=== PATIENT | female | born 1965 | race African-American/Black ===

== ENCOUNTER 2019-03-20 09:00 | Inpatient (IN) | payer OTHER ==
[2019-04-06 15:21] VITALS: BMI 35.6
--- NOTE | 2019-04-10 07:34 | HP ---
History & Physical Update - Physical Physical: No Change - Assessment Assessment: No Change - Plan Plan: No Change (H&P reviwed , no changes , for supracervical hysterectomy, bilateral salpingectomy, possible bilateral oophorectomy)
[2019-04-10] MEDS ORDERED: MIDAZOLAM HCL 2 MG/2 ML SINGLE DOSE VIAL ONE ×2 (08:39)
[2019-04-10] MEDS ORDERED: BUPIVACAINE LIPOSOME/PF (EXPAREL) 266 MG/20 ML VIAL ONE (08:43)
[2019-04-10] MEDS ORDERED: BUPIVACAINE HCL/PF 0.5% (5 MG/ML) 30 ML VIAL IJ ONE (08:43)
[2019-04-10] MEDS ORDERED: PROPOFOL 20 ML ONE (09:10)
[2019-04-10] MEDS ORDERED: SUCCINYLCHOLINE CHLORIDE 200 MG/10 ML SYRINGE ONE (09:11)
[2019-04-10] MEDS ORDERED: ceFAZolin SODIUM 1 GM VIAL ONE (09:26)
[2019-04-10] MEDS ORDERED: ceFAZolin SODIUM 1 GM VIAL IVPB ONE (09:30)
[2019-04-10] MEDS ORDERED: DEXAMETHASONE SOD PHOSPHATE 4 MG/1 ML VIAL ONE (09:33)
[2019-04-10] MEDS ORDERED: HYDROmorphone HCl 2 MG/ML VIAL ONE (09:54)
[2019-04-10] MEDS ORDERED: BENZOIN TINCTURE SWABSTICK TP ONE (11:14)
[2019-04-10] MEDS ORDERED: IBUPROFEN 800 MG/8 ML IJ IVPB PRN (11:35)
[2019-04-10] MEDS ORDERED: oxyCODONE HCL 5 MG TABLET PO PRN ×2 (11:35→11:37)
[2019-04-10] MEDS ORDERED: ONDANSETRON 4 MG/2 ML VIAL IVPUSH PRN (11:35)
[2019-04-10] MEDS ORDERED: ACETAMINOPHEN 325 MG TABLET (FP) PO PRN (11:38)
[2019-04-10] MEDS ORDERED: DOCUSATE SODIUM 100 MG CAPSULE (FP) PO PRN (11:38)
--- NOTE | 2019-04-10 11:44 | OP ---
Operative Note - Note: Operative Date: 04/10/19 Pre-Operative Diagnosis: pelvic pain, menometrorrhagia , anemia , fibroid uterus Operation: supracervical abdominal hysterectomy, bilateral salpingectomy Findings: large fibroid uterus , adenomyosis, . pelvic adhesion both tube and ovaries normal Post-Operative Diagnosis: Same as Pre-op Surgeon: Miguel Hanna Newspaper Distributor Supervisor: Vicki Donohue Anesthesiologist/PAPER INSERTER: Chetna Asif Anesthesia: General Specimens Removed: uterus, both tubes Estimated Blood Loss (mls): 200 Drains & Tubes with Location: davis Drains, Volume Out (mls): 100 Blood Volume Replaced (mls): 0 Fluid Volume Replaced (mls): 1,300 Operative Report Dictated: Yes
[2019-04-10] MEDS ORDERED: IBUPROFEN 800 MG/8 ML IJ IVPB ONE ×2 (11:56→12:00)
[2019-04-10] MEDS ORDERED: LACTATED RINGERS SOLUTION 1,000 ML IV SCH (12:00)
--- NOTE | 2019-04-10 14:13 | OP ---
DATE OF OPERATION: 04/10/2019 PREOPERATIVE DIAGNOSIS: Menometrorrhagia, pelvic pain, large fibroid uterus. POSTOPERATIVE DIAGNOSIS: Menometrorrhagia, pelvic pain, large fibroid uterus, pelvic adhesion, and adenomyosis. SURGEON: Miguel Hanna MD CALL CENTER ASSOCIATE: Vicki Donohue MD ANESTHESIA: General. ANESTHESIOLOGIST: Chetna Asif DO ESTIMATED BLOOD LOSS: 200 mL. DESCRIPTION OF PROCEDURE: Patient was taken to the operating room. Under adequate general anesthesia, abdomen and perineum were prepped and draped. Mason catheter was inserted. A Pfannenstiel abdominal skin incision was made, and this incision was carried to the subcutaneous tissue until the fascia was exposed. Then hemostasis was established. Fascia was excised transversely with Alfredo scissors then fascia was grasped with 2 Kochers, and the fascia was from the rectus muscles superiorly and inferiorly. Then peritoneum was grasped with 2 Loren clamps and entered with Metzenbaum scissors. Then visualization of pelvic organs showed a large uterus with multiple fibroids and adenomyosis extending above the umbilical area. The fibroid was impacted in the pelvic cavity and was laterally attached to the pelvic sidewall. Visualization was difficult because of the size of the fibroid and adhesion to the sidewall. First, adhesions were lysed with bipolar LigaSure cautery and then there was some movement of the uterus, which was grasped with 2 sweetheart clamps and delivered to the surface. Upper abdomen and bowels were checked. No other abnormality was noted. Bowels were packed away and then both round ligaments were identified, clamped with a Josue clamp, and cauterized with LigaSure cautery and cut. Then the anterior leaf of broad ligament was opened with Metzenbaum scissors and the bladder was dissected from the lower part of the uterus and pushed down. Then at this time both ovaries were identified. They were normal. Both tubes were normal. Then the right tube was grasped with Vianey clamp. Right tube was cauterized along the mesosalpinx with LigaSure cautery and cauterized and cut and removed. The same procedure repeated for the left fallopian tube. At this time, a hole was made in the broad ligament, and ovarian and uterine ligaments were clamped with a Josue clamp bilaterally, and the ovaries were severed from the uterus, and the pedicles were tied with 2-0 Vicryl ties and then with 2-0 Vicryl LigaSure sutures. At this time, the bladder was further pushed down and then the uterine artery was identified bilaterally, clamped with Josue clamp bilaterally, cut, and the clamp replaced with 0 Vicryl suture bilaterally. Paracervical area was clamped with Josue clamp, cut, and the clamp replaced using 0 Vicryl suture bilaterally. Then the specimen was removed above the cervix and then cervix was sutured and both cervical vaginal angles were closed with interrupted suture of 0 Vicryl and then the cervix was closed with continuous 2-0 Vicryl. Then a figure of eight was placed at the midportion of the cervix for hemostasis, and hemostasis was established. Then pelvic cavity was several times irrigated. There was small amount of oozing from the left paraovarian area, which was sutured with 3-0 Vicryl interrupted suture. Hemostasis was established. Pelvic cavity again irrigated, and no active bleeding was seen. All the lap, pad, sponge, and instrument counts were correct. Peritoneum was closed with 0 Vicryl continuous suture. Muscles were brought together with interrupted suture of 0 Vicryl and then the fascia was closed with 0 Vicryl continuous suture, subcutaneous fat interrupted suture of 2-0 Vicryl. Then the skin was closed with 3-0 Vicryl in subcuticular, continuous suture. Patient tolerated procedure well. Left the OR in good condition. Veronica [id number]
[2019-04-10] MEDS ORDERED: ONDANSETRON 4 MG/2 ML VIAL IVPUSH ONE (16:25)
[2019-04-10] MEDS ORDERED: ONDANSETRON 4 MG/2 ML VIAL ONE (16:31)
[2019-04-10] MEDS: ELECTROLYTE-148 SOLN 1,000 ML IV SCH (17:42)
[2019-04-10] MEDS: CEFAZOLIN 2 GM/D5W 2 GM/50 ML ML IVPB SCH (17:42)
[2019-04-10] MEDS: ACETAMINOPHEN 1000 MG/100 ML VIAL (NON FORMULARY) IVPB PRN (20:13)
[2019-04-11] MEDS: ELECTROLYTE-148 SOLN 1,000 ML IV SCH (00:29)
[2019-04-11] MEDS: CEFAZOLIN 2 GM/D5W 2 GM/50 ML ML IVPB SCH (01:29)
[2019-04-11] MEDS: ACETAMINOPHEN 1000 MG/100 ML VIAL (NON FORMULARY) IVPB PRN (02:44)
[2019-04-11] MEDS: ENOXAPARIN NA (PORCINE) 40 MG/0.4 ML DISP.SYRIN SQ SCH (09:14)
[2019-04-11 09:28] LABS: HEMATOCRIT 26.9 % (32.4-45.2); HEMOGLOBIN 8.5 GM/dL (10.7-15.3); MCH 23.7 pg (25.7-33.7); MCHC 31.5 g/dl (32.0-36.0); MEAN CELL VOLUME 75.2 fl (80-96); MEAN PLT VOLUME 7.7 fl (7.5-11.1); PLATELET COUNT 402 K/MM3 (134-434); RBC 3.58 M/mm3 (3.60-5.2); WHITE BLOOD COUNT 10.7 K/mm3 (4.0-10.0)
[2019-04-11] MEDS ORDERED: SIMETHICONE 80 MG TAB.CHEW (FP) PO PRN (09:35)
[2019-04-11 10:21] LABS: BLOOD UREA NITROGEN 11.8 mg/dL (7-18); CALCIUM 8.9 mg/dL (8.5-10.1); CREATININE 1.2 mg/dL (0.55-1.3); POTASSIUM 4.2 mmol/L (3.5-5.1)
[2019-04-11] MEDS ORDERED: DOCUSATE SODIUM 100 MG CAPSULE (FP) PO PRN (10:41)
--- NOTE | 2019-04-11 10:46 | PN ---
Progress Note (short form) - Note Progress Note: pod 1 ,doing well, ambulating , passing gas, voids ok, no dizziness,no vaginal bleeding, pain scale 3 CBC, BMP 04/11/19 08:40 04/11/19 08:40 Last Vital Signs Temp Pulse Resp BP Pulse Ox 98.4 F 87 20 140/82 98 04/11/19 09:00 04/11/19 09:00 04/11/19 09:00 04/11/19 09:00 04/10/19 21:00 abdomen soft, no distension, no cva BS are present incision dry, clean no calf tenderness no vaginal bleeding pod1 afebrile ,VS stable plan ambulate , cbc in am pain management
--- NOTE | 2019-04-11 11:25 | PN ---
Progress Note, Physician Chief Complaint: s/p KELECHI under general anesthesia History of Present Illness: post op day one, TAP block for post op pain control - Current Medication List Current Medications: Active Medications Acetaminophen (Tylenol -) 650 mg PO Q4H PRN PRN Reason: PAIN LEVEL 1 - 3 Acetaminophen (Ofirmev Injection -) 1,000 mg IVPB Q6H PRN PRN Reason: Pain or Fever Last Admin: 04/11/19 02:44 Dose: 1,000 mg Docusate Sodium (Colace -) 100 mg PO BID PRN PRN Reason: CONSTIPATION Enoxaparin Sodium (Lovenox -) 40 mg SQ DAILY ANDRE Last Admin: 04/11/19 09:14 Dose: 40 mg Fentanyl (Sublimaze Injection -) 50 mcg IVPUSH [id number] PRN PRN Reason: PAIN-PACU ORDER X 4 DOSES ONLY Ibuprofen (Motrin -) 600 mg PO Q6H PRN PRN Reason: FEVER Ibuprofen (Caldolor Injection -) 800 mg IVPB Q6H PRN PRN Reason: Fever - If PO not effective. Ondansetron HCl (Zofran Injection) 4 mg IVPUSH Q6H PRN PRN Reason: NAUSEA Last Admin: 04/11/19 00:08 Dose: 4 mg Oxycodone HCl (Roxicodone -) 5 mg PO Q4H PRN PRN Reason: PAIN LEVEL 4-6 Oxycodone HCl (Roxicodone -) 10 mg PO Q6H PRN PRN Reason: PAIN LEVEL 7-10 Simethicone (Mylicon -) 80 mg PO Q4H PRN PRN Reason: GAS - Objective Vital Signs: Vital Signs Temperature 98.4 F 04/11/19 09:00 Pulse Rate 87 04/11/19 09:00 Respiratory Rate 20 04/11/19 09:00 Blood Pressure 140/82 04/11/19 09:00 O2 Sat by Pulse Oximetry (%) 98 04/10/19 21:00 Constitutional: Yes: Well Nourished Cardiovascular: Yes: WNL Respiratory: Yes: WNL Gastrointestinal: Yes: WNL Labs: CBC, BMP 04/11/19 08:40 04/11/19 08:40 Assessment/Plan Nausea and vomiting last night, now resolved, no other complaints, dept of anesthesia will sign off care at this time
[2019-04-11] MEDS: IBUPROFEN 600 MG TABLET (FP) PO PRN ×2 (12:51→22:04)
[2019-04-12] MEDS: ENOXAPARIN NA (PORCINE) 40 MG/0.4 ML DISP.SYRIN SQ SCH (09:38)
[2019-04-12 13:40] VITALS: BP 153/81; PULSE 88; TEMP 98.6
--- NOTE | 2019-04-12 20:31 | DS ---
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-POST GRADUATE INTERN Vital Signs: Vital Signs Temperature 98.6 F 04/12/19 13:38 Pulse Rate 88 04/12/19 13:38 Respiratory Rate 20 04/12/19 13:38 Blood Pressure 153/81 04/12/19 13:38 O2 Sat by Pulse Oximetry (%) 98 04/12/19 09:00 Constitutional: Yes: Well Nourished, No Distress, Calm Eyes: Yes: WNL, Conjunctiva Clear, EOM Intact HENT: Yes: WNL, Atraumatic, Normocephalic Neck: Yes: WNL, Supple, Trachea Midline Cardiovascular: Yes: WNL, Regular Rate and Rhythm Respiratory: Yes: WNL, Regular, CTA Bilaterally Gastrointestinal: Yes: WNL ...Rectal Exam: Yes: WNL Renal/: Yes: WNL Breast(s): Yes: WNL Musculoskeletal: Yes: WNL Extremities: Yes: WNL Integumentary: Yes: WNL Wound/Incision: Yes: Clean/Dry, Well Approximated, Sutures Intact, Dressing Removed Neurological: Yes: WNL, Alert, Oriented ...Motor Strength: WNL Psychiatric: Yes: WNL, Alert, Oriented Labs: CBC, BMP 04/11/19 08:40 04/11/19 08:40 Discharge Summary Problems reviewed: Yes Reason For Visit: PELVIC PAIN menorrhagia, large fibroid uterus Procedures: Principal: supracervical abdominal hysterectomy , bilateral salpingectomy Other Procedures: lysis of pelvic adhesions Hospital Course: no complication, Health Concerns: obesity Plan of Treatment: advised wt management , folow up office 2 weeks Goals: ambulation , pain management , back to regular activity in 4 weeks Condition: Good - Instructions Diet, Activity, Other Instructions: regular diet, follow up office 2 weeks, no intercourse , if fever, severe pain, heavy vaginal bleeding call Referrals: Miguel Hanna MD [Staff Physician] - Disposition: HOME - Home Medications Comprehensive Discharge Medication List: Ambulatory Orders Mv-Mn/Iron/FA/Herbal/Digestive [ One Tablet] 1 each PO DAILY 04/06/19 Ibuprofen [Motrin -] 600 mg PO QID #28 tablet 04/12/19
--- NOTE | 2019-04-17 15:43 | PATH ---
Surgical Pathology Report Patient Name: SHANDRA MENDOZA [facility]. Rec. #: [id number] /Age/Gender: 1965 (Age: 53) / F Account: [id number] Location: [address] [place] [address] Taken: 04/10/2019 Received: 04/10/2019 Reported: 04/17/2019 Physicians: Miguel Hanna M.D. Specimen(s) Received UTERUS, BILATERAL FALLOPIAN TUBES Clinical History Pelvic pain, menometrorrhagia, fibroid uterus Final Diagnosis UTERUS, BILATERAL FALLOPIAN TUBES, SUPRACERVICAL HYSTERECTOMY AND BILATERAL SALPINGECTOMY: 1242 G UTERUS. LEIOMYOMA(TA), SUBSEROSAL AND INTRAMURAL. PROLIFERATIVE ENDOMETRIUM. MYOMETRIUM WITH ADENOMYOSIS. PORTION OF ENDOCERVIX WITHOUT SIGNIFICANT PATHOLOGIC FINDINGS. BILATERAL FALLOPIAN TUBES WITH PARATUBAL CYSTS (INCLUDING FULL LUMINAL PORTION AND FIMBRIATED END). Electronically Signed Nargis Espino M.D. Gross Description Received in formalin labeled "uterus, bilateral fallopian tubes," is a 1242 g supracervically amputated uterus with no attached adnexa. The bilateral fallopian tubes are separately received within the same container. The specimen measures 13 cm from superior to inferior, 12.5 cm from anterior to posterior and 11 cm from left to right. The serosa is carrasco-abreu with a focal defect at the fundus and multiple bulging subserosal nodules. The endometrial cavity measures 9 cm from superior to inferior and 3.8 cm from cornu to cornu. The endometrium is carrasco and averages 0.1 cm in thickness. The myometrium displays a 12 cm in greatest dimension intramural nodule. The cut surface of the nodule is carrasco and rubbery with whorled architecture. No areas of hemorrhage or necrosis are identified. The remaining myometrium displays multiple smaller intramural nodules. The remaining myometrium is carrasco dhaliwal and measures up to 9 cm in thickness. The separately received fimbriated fallopian tubes are undesignated. The tubes measure 6.0 and 8.0 cm in length. The outer surfaces are carrasco-abreu and smooth. Sectioning reveals unremarkable lumen. Hacksaw Inspector sections are submitted in 13 cassettes as follows: 1-cervical stump margin of resection; 0-5-[id number]; 5-subserosal nodules; 6-8-largest intramural nodule; 9-additional intramural nodules; 10-shorter fallopian tube fimbria; 11-cross sections of shorter fallopian tube; 12-longer fallopian tube fimbria; 13-cross sections of longer fallopian tube. 04/11/2019 [facility]04/11/2019
--- NOTE | 2019-04-19 15:48 | DS ---
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 Vital Signs: Vital Signs Temperature 98.6 F 04/12/19 13:38 Pulse Rate 88 04/12/19 13:38 Respiratory Rate 20 04/12/19 13:38 Blood Pressure 153/81 04/12/19 13:38 O2 Sat by Pulse Oximetry (%) 98 04/12/19 09:00 Constitutional: Yes: Well Nourished, No Distress, Calm Eyes: Yes: WNL, Conjunctiva Clear, EOM Intact HENT: Yes: WNL, Atraumatic, Normocephalic Neck: Yes: WNL, Supple, Trachea Midline Cardiovascular: Yes: WNL, Regular Rate and Rhythm Respiratory: Yes: WNL, Regular, CTA Bilaterally Gastrointestinal: Yes: WNL ...Rectal Exam: Yes: WNL Renal/: Yes: WNL Breast(s): Yes: WNL Musculoskeletal: Yes: WNL Extremities: Yes: WNL Integumentary: Yes: WNL Wound/Incision: Yes: Clean/Dry, Well Approximated, Sutures Intact, Steri Strips Neurological: Yes: WNL, Alert, Oriented ...Motor Strength: WNL Psychiatric: Yes: WNL, Alert, Oriented Labs: CBC, BMP 04/11/19 08:40 04/11/19 08:40 Discharge Summary Problems reviewed: Yes Reason For Visit: PELVIC PAIN pelvic pain, menorrhagia, fibroid uterus Procedures: Principal: supracervical abdominal hysterectomy Other Procedures: bilateral salpingectomy Hospital Course: no complication, Health Concerns: obesity Plan of Treatment: advised wt management , folow up office 2 weeks Goals: ambulation , pain management , back to regular activity in 4 weeks Condition: Good - Instructions Diet, Activity, Other Instructions: regular diet, follow up office 2 weeks, no intercourse , if fever, severe pain, heavy vaginal bleeding call Referrals: Miguel Hanna MD [Staff Physician] - Disposition: HOME - Home Medications Comprehensive Discharge Medication List: Ambulatory Orders Mv-Mn/Iron/FA/Herbal/Digestive [ One Tablet] 1 each PO DAILY 04/06/19 Ibuprofen [Motrin -] 600 mg PO QID #28 tablet 04/12/19
== END 2019-04-12 14:55 | disposition home or self-care (01) | DRG 513 ==
LOC: JSAMEDAYSX 04-10 07:15 → J6S 04-10 17:00
PROVIDERS: ADMIT Obstetrics & Gynecology; ATTEND Obstetrics & Gynecology
PROC: 0UT70ZZ Resection of Bilateral Fallopian Tubes, Open Approach (ICD-10-PCS; 2019-04-10)
PROC: 0JNC0ZZ Release Pelvic Region Subcutaneous Tissue and Fascia, Open Approach (ICD-10-PCS; 2019-04-10)
PROC: 0UT90ZL Resection of Uterus, Supracervical, Open Approach (ICD-10-PCS; principal; 2019-04-10 09:00)
DX: N80.0 Endometriosis of uterus (principal); N92.1 Excessive and frequent menstruation with irregular cycle; D25.9 Leiomyoma of uterus, unspecified; D64.9 Anemia, unspecified; N73.6 Female pelvic peritoneal adhesions (postinfective); E66.9 Obesity, unspecified; Z68.35 Body mass index [BMI] 35.0-35.9, adult
CPT/HCPCS: 36415; 80048; 84703; 85027; 86850; 86900; 86901; 88307-TC; 94760; J0131